=== PATIENT | female | born 2000 ===

== ENCOUNTER → 2020-12-02 | Outpatient (REF) ==
--- NOTE | 2020-12-02 20:00 | REP ---
INDICATION: SOB COMPARISON: None. TECHNIQUE: PA and lateral. FINDINGS: The mediastinum and cardiac silhouette are normal. The lung chakraborty are clear and without acute consolidation, effusion, or pneumothorax. The skeletal structures are intact and normal. IMPRESSION: No acute cardiopulmonary process. <Electronically signed by Nilo Portillo > 12/02/201955
== END ==
LOC: M PLAIMG 13:14
PROVIDERS: ATTEND Internal Medicine
DX: R06.02 Shortness of breath (principal)